=== PATIENT | male | born 1975 | race Caucasian/White ===

== ENCOUNTER 2018-01-31 16:04 | Emergency (ER) | payer SELFPAY ==
--- NOTE | 2018-01-31 16:56 | UC ---
Throat Pain/Nasal Mack HPI - HPI Summary HPI Summary: C/O sore throat, headache, fevers, chills and swollen glands on the neck. No cough or congestion. - History of Current Complaint Chief Complaint: UCRespiratory Stated Complaint: FEVER/[place]ANDS/FATIGUE Hx Obtained From: Patient Onset/Duration: Sudden Onset, Lasting Days - 2, Worse Since - today Severity: Moderate Pain Intensity: 5 Cough: None Associated Signs & Symptoms: Positive: Dysphagia, Fever. Negative: Wheezing, Hoarseness, Sinus Discomfort, Nasal Discharge Related History: Seasonal Allergies - Allergies/Home Medications Allergies/Adverse Reactions: Allergies Allergy/AdvReac Type Severity Reaction Status Date / Time No Known Allergies Allergy Verified 01/31/18 16:30 Home Medications: Home Medications Ascorbic Acid TAB* [Vitamin C TAB*] 1,000 mg PO DAILY 01/31/18 [History Confirmed 01/31/18] Ibuprofen 400 mg PO ONCE PRN 01/31/18 [History Confirmed 01/31/18] PMH/Surg Hx/FS Hx/Imm Hx Previously Healthy: Yes - Surgical History Surgical History: Yes Surgery Procedure, Year, and Place: appy - Family History Known Family History: Positive: Cardiac Disease, Hypertension, Diabetes - Social History Occupation: Employed Full-time Lives: Alone Alcohol Use: Rare Substance Use Type: None Smoking Status (MU): Former Smoker Type: Cigarettes Length of Time of Smoking/Using Tobacco: 20 yrs When Did the Patient Quit Smoking/Using Tobacco: 2009 Review of Systems Constitutional: Fever, Chills, Fatigue ENT: Sore Throat Is Patient Immunocompromised?: No All Other Systems Reviewed And Are Negative: Yes Physical Exam Triage Information Reviewed: Yes Appearance: No Pain Distress, Well-Nourished, Ill-Appearing Vital Signs: Initial Vital Signs Temp 102.1 F 01/31/18 16:24 Pulse 95 01/31/18 16:24 Resp 19 01/31/18 16:24 BP 150/66 01/31/18 16:24 Pulse Ox 100 01/31/18 16:24 Vital Signs Reviewed: Yes Eyes: Positive: Conjunctiva Clear ENT: Positive: Pharyngeal erythema, Nasal congestion - with allergic changes, TMs normal Neck: Positive: Tenderness @ - anterior cervical nodes right > left, Enlarged Nodes @ - anterior cervical bilateral Respiratory Exam: Normal Cardiovascular Exam: Normal Musculoskeletal Exam: Normal Neurological Exam: Normal Psychological Exam: Normal Skin Exam: Normal Diagnostics - Laboratory Diagnostic Studies Completed/Ordered: Rapid strep negative Throat Pain/Nasal Course/Dx - Differential Dx/Diagnosis Differential Diagnosis/HQI/PQRI: Laryngitis, Pharyngitis, Tonsillitis, URI Provider Diagnoses: Acute pharyngitis Discharge - Sign-Out/Discharge Documenting (check all that apply): Patient Departure - Discharge Plan Condition: Stable Disposition: HOME Patient Education Materials: Pharyngitis (ED), Allergic Rhinitis (ED) Referrals: No Primary Care Phys,NOPCP [Primary Care Provider] - Additional Instructions: NEILMED SINUS RINSE: CHECK OUT AT [facility] Saline nasal wash helps with mucous, allergies and congestion. It can be used up to twice a day or only as needed. Use lukewarm tap water. It does not have to be sterilized or distilled water. Do 1/3 on each side and snort out of both nostrils. Repeat the process with 1/6 of the bottle on each side with snorting in between to finish the solution in the bottle - Billing Disposition and Condition Condition: STABLE Disposition: Home
== END 2018-01-31 17:12 | disposition home or self-care (01) ==
LOC: UCCORT 16:04
DX: J02.9 Acute pharyngitis, unspecified (principal)
CPT/HCPCS: 87651; 99201; G0463